=== PATIENT | male | born 1975 | race African-American/Black ===

== ENCOUNTER 2016-07-02 07:43 | Emergency (ER) | payer SELFPAY ==
[~2016-07-02] VITALS: Ht 177.8 cm; Wt 116.4 kg
[~2016-07-02 07:43] MED LIST: CEPHALEXIN500 M1 PO; DOXYCYCLINE 10100 MG PO; FLEXERIL 1010 MG/TAB PO; HCTZ 25MG TAB25 MG PO; LISINOPRIL10 MG PO; LISINOPRIL5 MG PO; LORTAB 5/500 501 TAB PO; MOTRIN 800800 MG/TAB PO; NAPROSYN500 MG PO; NO HOME MEDICATIONS; NORCO 325 MG-51 TAB PO; NORCO 325 MG-7.1 TAB PO; NORFLEX 10100 MG/TAB PO; PEN-V500 MG PO; PEN-VEE K500 MG PO; PENICILLIN250 MG PO; PERCOCET 325 MG1 TA2 PO; PHENERGAN 25 TA25 MG PO; PRINIVIL10 MG PO; ZESTRIL 10MG10 MG PO; ZITHROMAX Z PA250 MG PO; ZOFRAN 4MG T4 MG/TAB PO
[2016-07-02 07:52] VITALS: TEMP 98.5
[2016-07-02 08:29] LABS: BASO % 0.5 % (0.0-2.0); EOS # 0.2 (0.0-0.7); EOS % 2.8 % (0-4.0); GRAN # 5.4 (1.4-6.5); GRAN % 64.6 % (42.2-75.2); HEMATOCRIT 41.8 % (42.0-52.0); HEMOGLOBIN 13.6 g/dl (13.5-18.0); LYMPH # 2.3 (1.2-3.4); LYMPH % 27.5 % (20.0-51.0); MEAN CELL VOLUME 87 fl (80.0-100.0); MEAN CORPUSCULAR HEMOGLOBIN 29 pg (27.0-31.0); MEAN CORPUSCULAR HGB CONC 33 g/dl (33.0-37.0); MEAN PLATELET VOLUME 10.7 fl (7.4-10.4); MONO # 0.4 (0.1-0.6); MONO % 4.2 % (1.7-9.3); PLATELET COUNT 238 K/mm3 (130-400); RED BLOOD COUNT 4.78 M/mm3 (4.20-5.60); REDCELL DISTRIBUTION WIDTH-CV 14.5 % (11.5-14.5); WHITE BLOOD COUNT 8.3 K/mm3 (4.8-10.8)
[2016-07-02 08:35] LABS: PROTHROMBIN TIME 10.7 SECONDS (9.7-12.8)
[2016-07-02 08:36] LABS: ADJUSTED CALCIUM 9.1 mg/dL (8.4-10.2); ALBUMIN 4.4 gm/dL (3.5-5.0); BILIRUBIN,TOTAL 0.6 mg/dL (0.0-1.0); CALCIUM 9.4 mg/dL (8.4-10.2); CREATININE, serum 1.14 mg/dL (0.66-1.25); POTASSIUM 4.2 mmol/L (3.4-5.0); TOTAL PROTEIN 7.9 gm/dL (6.4-8.2)
[2016-07-02 08:37] LABS: PARTIAL THROMBOPLASTIN TIME 32.8 SECONDS (26.0-37.0)
[2016-07-02 09:03] VITALS: BP 176/101; PULSE 60
== END 2016-07-02 10:00 | disposition home or self-care (01) ==
LOC: COL.ER 07:43
PROVIDERS: Emergency Medicine
DX: K92.2 Gastrointestinal hemorrhage, unspecified (principal); I10 Essential (primary) hypertension; F17.210 Nicotine dependence, cigarettes, uncomplicated
CPT/HCPCS: J2765; J3010; J7050

== ENCOUNTER 2016-07-24 05:22 | Emergency (ER) | payer SELFPAY ==
[~2016-07-24] VITALS: Ht 177.8 cm; Wt 117.3 kg
[2016-07-24 05:25] VITALS: TEMP 97.8
[2016-07-24] MEDS ORDERED: PRINIVIL10 MG PO ×2 (05:28→05:47)
[2016-07-24] MEDS ORDERED: ULTRAM 50MG TAB50 MG PO (05:47)
[2016-07-24 05:51] LABS: BASO % 0.4 % (0.0-2.0); EOS # 0.3 (0.0-0.7); EOS % 2.5 % (0-4.0); GRAN % 59.2 % (42.2-75.2); HEMOGLOBIN 14.2 g/dl (13.5-18.0); LYMPH # 3.1 (1.2-3.4); LYMPH % 31.2 % (20.0-51.0); MEAN CELL VOLUME 87 fl (80.0-100.0); MEAN CORPUSCULAR HEMOGLOBIN 29 pg (27.0-31.0); MEAN CORPUSCULAR HGB CONC 33 g/dl (33.0-37.0); MEAN PLATELET VOLUME 11.5 fl (7.4-10.4); MONO # 0.7 (0.1-0.6); MONO % 6.5 % (1.7-9.3); PLATELET COUNT 232 K/mm3 (130-400); RED BLOOD COUNT 4.95 M/mm3 (4.20-5.60); REDCELL DISTRIBUTION WIDTH-CV 14.3 % (11.5-14.5); WHITE BLOOD COUNT 10.1 K/mm3 (4.8-10.8)
[2016-07-24 06:42] VITALS: BP 137/90; PULSE 63
== END 2016-07-24 06:34 | disposition home or self-care (01) ==
LOC: COL.ER 05:22
PROVIDERS: Emergency Medicine
DX: R51 Headache (principal); I10 Essential (primary) hypertension; T46.5X6A Underdosing of other antihypertensive drugs, initial encounter; F17.210 Nicotine dependence, cigarettes, uncomplicated
CPT/HCPCS: J1200; J1885; J2765; J7030

== ENCOUNTER 2016-08-31 22:47 | Emergency (ER) | payer SELFPAY ==
[~2016-08-31] VITALS: Ht 177.8 cm; Wt 122.7 kg
[~2016-08-31 22:47] MED LIST changes: +ULTRAM 50MG TAB50 MG PO
[2016-08-31 22:50] VITALS: TEMP 98
[2016-08-31 23:25] LABS: BASO % 0.3 % (0.0-2.0); EOS # 0.2 (0.0-0.7); EOS % 2.6 % (0-4.0); GRAN # 5.2 (1.4-6.5); GRAN % 55.9 % (42.2-75.2); HEMOGLOBIN 13.7 g/dl (13.5-18.0); LYMPH # 3.3 (1.2-3.4); LYMPH % 36.2 % (20.0-51.0); MEAN CELL VOLUME 86 fl (80.0-100.0); MEAN CORPUSCULAR HEMOGLOBIN 29 pg (27.0-31.0); MEAN CORPUSCULAR HGB CONC 33 g/dl (33.0-37.0); MEAN PLATELET VOLUME 11.1 fl (7.4-10.4); MONO # 0.4 (0.1-0.6); MONO % 4.8 % (1.7-9.3); PLATELET COUNT 211 K/mm3 (130-400); RED BLOOD COUNT 4.75 M/mm3 (4.20-5.60); REDCELL DISTRIBUTION WIDTH-CV 14.1 % (11.5-14.5); WHITE BLOOD COUNT 9.2 K/mm3 (4.8-10.8)
[2016-08-31 23:36] LABS: ADJUSTED CALCIUM 8.9 mg/dL (8.4-10.2); ALANINE AMINOTRANSFERASE 44 U/L (21-72); ALKALINE PHOSPHATASE 172 U/L (50-136); ANION GAP 13 mmol/L (7-16); BILIRUBIN,TOTAL 0.7 mg/dL (0.0-1.0); BLOOD UREA NITROGEN 18 mg/dL (9-20); CALCIUM 9.7 mg/dL (8.4-10.2); CARBON DIOXIDE 23 mmol/L (22-30); CHLORIDE 104 mmol/L (98-107); CREATININE, serum 1.17 mg/dL (0.66-1.25); GLUCOSE 91 mg/dL (74-106); LIPASE 810 U/L (23-300); POTASSIUM 3.9 mmol/L (3.4-5.0); SODIUM 140 mmol/L (137-145); TOTAL PROTEIN 8.1 gm/dL (6.4-8.2)
[2016-08-31 23:47] LABS: B-TYPE NATRIURETIC PEPTIDE 29 pg/mL (0-125)
[2016-08-31 23:51] LABS: TROPONIN-I < 0.012 ng/mL (0.000-0.034)
[2016-09-01 02:12] VITALS: BP 182/108; PULSE 57
== END 2016-09-01 02:15 | disposition home or self-care (01) ==
LOC: COL.ER 22:47
PROVIDERS: Emergency Medicine
DX: D17.1 Benign lipomatous neoplasm of skin and subcutaneous tissue of trunk (principal); D17.79 Benign lipomatous neoplasm of other sites; I10 Essential (primary) hypertension
CPT/HCPCS: J1170; Q9967

== ENCOUNTER 2016-11-16 20:33 | Emergency (ER) | payer SELFPAY ==
[~2016-11-16] VITALS: Ht 177.8 cm; Wt 120.5 kg
[2016-11-16 20:47] VITALS: BP 178/97; PULSE 70; TEMP 98.9
[2016-11-16] MEDS ORDERED: NORCO 325 MG-51 TAB PO (21:25)
[2016-11-16] MEDS ORDERED: PEN-VEE K500 MG PO (21:25)
== END 2016-11-16 21:41 | disposition home or self-care (01) ==
LOC: COL.ER 20:33
DX: K08.89 Other specified disorders of teeth and supporting structures (principal); F17.200 Nicotine dependence, unspecified, uncomplicated; K03.81 Cracked tooth; I10 Essential (primary) hypertension

== ENCOUNTER 2017-02-13 21:50 | Emergency (ER) | payer SELFPAY ==
[~2017-02-13] VITALS: Ht 177.8 cm; Wt 121.4 kg
[2017-02-13 21:58] VITALS: TEMP 98.2
[2017-02-13 22:44] LABS: BASO % 0.4 % (0.0-2.0); EOS # 0.2 (0.0-0.7); EOS % 1.6 % (0-4.0); GRAN # 6.4 (1.4-6.5); GRAN % 61.3 % (42.2-75.2); HEMATOCRIT 44.7 % (42.0-52.0); LYMPH # 3.2 (1.2-3.4); MEAN CELL VOLUME 85 fl (80.0-100.0); MEAN CORPUSCULAR HEMOGLOBIN 29 pg (27.0-31.0); MEAN CORPUSCULAR HGB CONC 34 g/dl (33.0-37.0); MEAN PLATELET VOLUME 11.4 fl (7.4-10.4); MONO # 0.7 (0.1-0.6); MONO % 6.5 % (1.7-9.3); PLATELET COUNT 277 K/mm3 (130-400); RED BLOOD COUNT 5.24 M/mm3 (4.20-5.60); WHITE BLOOD COUNT 10.5 K/mm3 (4.8-10.8)
[2017-02-13 22:54] LABS: ADJUSTED CALCIUM 9.1 mg/dL (8.4-10.2); ALBUMIN 5.5 gm/dL (3.5-5.0); BILIRUBIN,TOTAL 0.6 mg/dL (0.0-1.0); CALCIUM 10.3 mg/dL (8.4-10.2); CREATININE, serum 2.63 mg/dL (0.66-1.25); POTASSIUM 3.9 mmol/L (3.4-5.0); TOTAL PROTEIN 9.3 gm/dL (6.4-8.2)
[2017-02-13 23:05] LABS: HYALINE CAST >12 /lpf; PH 5 (5-8); SQUAMOUS EPITHELIAL 0-2 /hpf; URINE APPEARANCE Hazy; URINE BACTERIA None Seen /hpf; URINE BILIRUBIN Negative (NEGATIVE); URINE BLOOD Negative (NEGATIVE); URINE COLOR Yellow; URINE GLUCOSE Negative (NEGATIVE); URINE KETONE Trace (NEGATIVE); URINE RBC 0-2 /hpf
[2017-02-14] VITALS: BP 158/98; PULSE 71
== END 2017-02-14 | disposition home or self-care (01) ==
LOC: COL.ER 21:50
PROVIDERS: Family Medicine
DX: E86.0 Dehydration (principal); R00.0 Tachycardia, unspecified; R79.89 Other specified abnormal findings of blood chemistry; I10 Essential (primary) hypertension; F17.210 Nicotine dependence, cigarettes, uncomplicated
CPT/HCPCS: J2060; J2405; J7030

== ENCOUNTER 2017-02-23 21:48 | Emergency (ER) | payer SELFPAY ==
[~2017-02-23] VITALS: Ht 170.2 cm; Wt 115.5 kg
[2017-02-23 21:51] VITALS: TEMP 98.4
[2017-02-24] MEDS ORDERED: VOLTAREN 75 DR75 MG PO (02:32)
[2017-02-24] MEDS ORDERED: NORCO 325 MG-51 TAB PO (02:32)
[2017-02-24] MEDS ORDERED: FLEXERIL 1010 MG/TAB PO (02:32)
[2017-02-24 02:47] VITALS: BP 147/82; PULSE 58
== END 2017-02-24 02:49 | disposition home or self-care (01) ==
LOC: COL.ER 21:48
DX: S16.1XXA Strain of muscle, fascia and tendon at neck level, initial encounter (principal); V43.62XA Car passenger injured in collision with other type car in traffic accident, initial encounter; Y92.410 Unspecified street and highway as the place of occurrence of the external cause; R20.0 Anesthesia of skin; R29.898 Other symptoms and signs involving the musculoskeletal system; M99.51 Intervertebral disc stenosis of neural canal of cervical region
CPT/HCPCS: J3010

== ENCOUNTER 2017-04-27 22:26 | Emergency (ER) | payer SELFPAY ==
[~2017-04-27] VITALS: Ht 177.8 cm; Wt 118.6 kg
[~2017-04-27 22:26] MED LIST changes: +VOLTAREN 75 DR75 MG PO
[2017-04-27 22:28] VITALS: TEMP 98.8
[2017-04-27 23:09] LABS: COLLECTION METHOD CLEAN CATCH
[2017-04-27 23:13] LABS: BASO % 0.4 % (0.0-2.0); EOS # 0.2 (0.0-0.7); EOS % 2.7 % (0-4.0); GRAN # 5.1 (1.4-6.5); GRAN % 62.6 % (42.2-75.2); HEMOGLOBIN 13.3 g/dl (13.5-18.0); LYMPH # 2.5 (1.2-3.4); LYMPH % 30.5 % (20.0-51.0); MEAN CELL VOLUME 87 fl (80.0-100.0); MEAN CORPUSCULAR HEMOGLOBIN 29 pg (27.0-31.0); MEAN CORPUSCULAR HGB CONC 33 g/dl (33.0-37.0); MEAN PLATELET VOLUME 11.2 fl (7.4-10.4); MONO # 0.3 (0.1-0.6); MONO % 3.6 % (1.7-9.3); PLATELET COUNT 220 K/mm3 (130-400); WHITE BLOOD COUNT 8.1 K/mm3 (4.8-10.8)
[2017-04-27 23:16] LABS: PH 5 (5-8); SQUAMOUS EPITHELIAL None Seen /hpf; URINE APPEARANCE Clear; URINE BACTERIA None Seen /hpf; URINE BILIRUBIN Negative (NEGATIVE); URINE BLOOD Negative (NEGATIVE); URINE COLOR Yellow; URINE GLUCOSE Negative (NEGATIVE); URINE KETONE Negative (NEGATIVE); URINE LEUKOCYTE ESTERASE Negative (NEGATIVE); URINE PROTEIN(semi-quant) Negative (NEGATIVE); URINE RBC 0-2 /hpf; URINE UROBILINOGEN Negative (NEGATIVE); URINE WBC 0-2 /hpf
[2017-04-27 23:22] LABS: ADJUSTED CALCIUM 9.1 mg/dL (8.4-10.2); ALBUMIN 4.7 gm/dL (3.5-5.0); BILIRUBIN,TOTAL 0.4 mg/dL (0.0-1.0); CALCIUM 9.7 mg/dL (8.4-10.2); CREATININE, serum 1.08 mg/dL (0.66-1.25); POTASSIUM 3.8 mmol/L (3.4-5.0); TOTAL PROTEIN 7.6 gm/dL (6.4-8.2)
[2017-04-28] MEDS ORDERED: FLAGYL500 MG PO (00:30)
[2017-04-28] MEDS ORDERED: LEVAQUIN 750MG750 M1 PO (00:30)
[2017-04-28 00:57] VITALS: BP 178/115; PULSE 63
== END 2017-04-28 01:08 | disposition home or self-care (01) ==
LOC: COL.ER 22:26
PROVIDERS: Emergency Medicine
DX: K62.89 Other specified diseases of anus and rectum (principal); K92.1 Melena; I10 Essential (primary) hypertension; F17.210 Nicotine dependence, cigarettes, uncomplicated
CPT/HCPCS: J2270; J7030; Q9967

== ENCOUNTER 2017-06-29 13:42 | Inpatient (IN) | payer BC ==
[~2017-06-29] VITALS: Ht 177.8 cm; Wt 113.8 kg
[~2017-06-29 13:42] MED LIST changes: +FLAGYL500 MG PO; +LEVAQUIN 750MG750 M1 PO
[2017-06-29 15:47] LABS: BASO % 0.5 % (0.0-2.0); EOS # 0.3 (0.0-0.7); EOS % 3.1 % (0-4.0); GRAN % 59.5 % (42.2-75.2); HEMATOCRIT 43.3 % (42.0-52.0); HEMOGLOBIN 14.2 g/dl (13.5-18.0); LYMPH # 2.7 (1.2-3.4); LYMPH % 32.4 % (20.0-51.0); MEAN CELL VOLUME 89 fl (80.0-100.0); MEAN CORPUSCULAR HEMOGLOBIN 29 pg (27.0-31.0); MEAN CORPUSCULAR HGB CONC 33 g/dl (33.0-37.0); MEAN PLATELET VOLUME 11.1 fl (7.4-10.4); MONO # 0.4 (0.1-0.6); MONO % 4.3 % (1.7-9.3); PLATELET COUNT 225 K/mm3 (130-400); RED BLOOD COUNT 4.89 M/mm3 (4.20-5.60); REDCELL DISTRIBUTION WIDTH-CV 14.2 % (11.5-14.5)
[2017-06-29 16:04] LABS: ALBUMIN 4.8 gm/dL (3.5-5.0); BILIRUBIN,TOTAL 0.3 mg/dL (0.0-1.0); CALCIUM 9.6 mg/dL (8.4-10.2); CREATININE, serum 1.14 mg/dL (0.66-1.25); POTASSIUM 4.6 mmol/L (3.4-5.0); TOTAL PROTEIN 7.8 gm/dL (6.4-8.2)
[2017-06-29 20:00] VITALS: BP 140/105; PULSE 54; TEMP 98
[2017-06-29 21:25] VITALS: BP 140/105; PULSE 54; TEMP 98
[2017-06-30] VITALS: BP 155/95; PULSE 60; TEMP 97.8
[2017-06-30 03:33] VITALS: BP 146/100; PULSE 57; TEMP 97.9
[2017-06-30 05:42] LABS: BASO % 0.4 % (0.0-2.0); EOS # 0.3 (0.0-0.7); EOS % 3.3 % (0-4.0); GRAN # 4.4 (1.4-6.5); GRAN % 54.5 % (42.2-75.2); HEMATOCRIT 42.2 % (42.0-52.0); HEMOGLOBIN 13.8 g/dl (13.5-18.0); MEAN CELL VOLUME 88 fl (80.0-100.0); MEAN CORPUSCULAR HEMOGLOBIN 29 pg (27.0-31.0); MEAN CORPUSCULAR HGB CONC 33 g/dl (33.0-37.0); MEAN PLATELET VOLUME 10.7 fl (7.4-10.4); MONO # 0.4 (0.1-0.6); MONO % 4.4 % (1.7-9.3); PLATELET COUNT 231 K/mm3 (130-400); REDCELL DISTRIBUTION WIDTH-CV 14.3 % (11.5-14.5)
[2017-06-30 06:18] LABS: CALCIUM 9.6 mg/dL (8.4-10.2); CREATININE, serum 1.06 mg/dL (0.66-1.25)
[2017-06-30 08:00] VITALS: BP 164/107; PULSE 76; TEMP 97.7
[2017-06-30 12:00] VITALS: BP 119/75; PULSE 53; TEMP 97.7
[2017-06-30 15:30] VITALS: BP 154/98; PULSE 62; TEMP 98.4
[2017-06-30 19:16] VITALS: BP 152/93; PULSE 64; TEMP 98.7
[2017-07-01] VITALS (8 sets, daily range): BP systolic 138–183; BP diastolic 78–100; PULSE 56–82; TEMP 97.5–98.6
[2017-07-02 00:04] VITALS: BP 155/90; PULSE 63; TEMP 98.5
[2017-07-02 04:24] VITALS: BP 121/59; PULSE 91; TEMP 98.3
[2017-07-02 04:40] VITALS: BP 150/102; PULSE 66; TEMP 98
[2017-07-02 08:05] VITALS: BP 163/92; PULSE 65; TEMP 98
[2017-07-02 09:58] VITALS: BP 133/87; PULSE 74
[2017-07-02] MEDS ORDERED: NORVASC 5MG5 MG/TAB PO (10:03)
[2017-07-02] MEDS ORDERED: ZESTRIL 20MG TA20 MG PO (10:03)
[2017-07-02] MEDS ORDERED: NICODERM C21 MG/PATC TD (10:05)
== END 2017-07-02 12:06 | disposition home or self-care (01) | DRG 305 ==
LOC: COL.ER 13:42 → ICU 18:20 → MEDICAL 18:20
PROVIDERS: Family Medicine; Nurse Practitioner Family
DX: I16.0 Hypertensive urgency (principal); I10 Essential (primary) hypertension; F17.210 Nicotine dependence, cigarettes, uncomplicated
CPT/HCPCS: 99222-AI; 99231-AI; 99239; J0360; J0595; J1170; J2550; J7050

== ENCOUNTER 2017-09-14 21:29 | Emergency (ER) | payer BC ==
[~2017-09-14] VITALS: Ht 154.9 cm; Wt 119.9 kg
[~2017-09-14 21:29] MED LIST changes: +NICODERM C21 MG/PATC TD; +NORVASC 5MG5 MG/TAB PO; +ZESTRIL 20MG TA20 MG PO
[2017-09-14 21:32] VITALS: TEMP 98.8
[2017-09-14] MEDS ORDERED: MEDROL 4MG DOSPA4 MG PO (23:08)
[2017-09-14 23:32] VITALS: BP 164/94; PULSE 89
== END 2017-09-14 23:32 | disposition home or self-care (01) ==
LOC: COL.ER 21:29
DX: M54.31 Sciatica, right side (principal)

== ENCOUNTER → 2017-10-01 | Outpatient (CLI) | payer BC ==
[~2017-10-01] MED LIST changes: +MEDROL 4MG DOSPA4 MG PO
== END ==
LOC: COL.RAD 07:02
DX: D17.39 Benign lipomatous neoplasm of skin and subcutaneous tissue of other sites (principal)

== ENCOUNTER 2018-04-07 06:59 | Emergency (ER) | payer BC ==
[~2018-04-07] VITALS: Ht 175.3 cm; Wt 122.7 kg
[2018-04-07 07:05] VITALS: PULSE 74; TEMP 98.5
[2018-04-07] MEDS ORDERED: PRINIVIL40 MG PO (07:07)
[2018-04-07] MEDS ORDERED: AMOXICILLIN 50500 MG PO (07:28)
[2018-04-07 07:36] VITALS: BP 158/102
== END 2018-04-07 07:37 | disposition home or self-care (01) ==
LOC: COL.ER 06:59
DX: I10 Essential (primary) hypertension (principal); J02.9 Acute pharyngitis, unspecified
CPT/HCPCS: J8540

== ENCOUNTER 2018-08-02 17:50 | Emergency (ER) | payer OTHER ==
[~2018-08-02] VITALS: Ht 177.8 cm; Wt 113.6 kg
[~2018-08-02 17:50] MED LIST changes: +AMOXICILLIN 50500 MG PO; +PRINIVIL40 MG PO
[2018-08-02 18:00] VITALS: BP 182/117; TEMP 98.6
[2018-08-02] MEDS ORDERED: ZITHROMAX Z PA250 MG PO (20:20)
[2018-08-02] MEDS ORDERED: NORCO 325 MG-51 TAB PO (20:20)
[2018-08-02 20:35] VITALS: PULSE 62
== END 2018-08-02 20:35 | disposition home or self-care (01) ==
LOC: COL.ER 17:50
DX: S20.212A Contusion of left front wall of thorax, initial encounter (principal); I10 Essential (primary) hypertension; F17.210 Nicotine dependence, cigarettes, uncomplicated; X50.0XXA Overexertion from strenuous movement or load, initial encounter; Y92.59 Other trade areas as the place of occurrence of the external cause

== ENCOUNTER 2018-08-18 06:48 | Emergency (ER) | payer SELFPAY ==
[~2018-08-18] VITALS: Ht 177.8 cm; Wt 116.8 kg
[2018-08-18 06:55] VITALS: TEMP 98.6
[2018-08-18 07:15] LABS: BASO % 0.3 % (0.0-2.0); EOS # 0.2 (0.0-0.7); EOS % 2.7 % (0-4.0); GRAN # 4.6 (1.4-6.5); GRAN % 60.9 % (42.2-75.2); HEMATOCRIT 42.8 % (42.0-52.0); HEMOGLOBIN 13.9 g/dl (13.5-18.0); LYMPH # 2.3 (1.2-3.4); LYMPH % 31.1 % (20.0-51.0); MEAN CELL VOLUME 88 fl (80.0-100.0); MEAN CORPUSCULAR HEMOGLOBIN 28 pg (27.0-31.0); MEAN CORPUSCULAR HGB CONC 33 g/dl (33.0-37.0); MEAN PLATELET VOLUME 10.9 fl (7.4-10.4); MONO # 0.3 (0.1-0.6); MONO % 4.6 % (1.7-9.3); PLATELET COUNT 199 K/mm3 (130-400); RED BLOOD COUNT 4.89 M/mm3 (4.20-5.60); REDCELL DISTRIBUTION WIDTH-CV 14.3 % (11.5-14.5)
[2018-08-18 07:35] LABS: ALBUMIN 4.3 gm/dL (3.5-5.0); BILIRUBIN,TOTAL 0.2 mg/dL (0.0-1.0); C-REACTIVE PROTEIN 0.5 mg/dL (0.0-0.9); CALCIUM 9.1 mg/dL (8.4-10.2); CREATININE, serum 1.29 mg/dL (0.66-1.25); POTASSIUM 4.1 mmol/L (3.4-5.0); TOTAL PROTEIN 7.5 gm/dL (6.4-8.2)
[2018-08-18] MEDS ORDERED: ZESTRIL40 MG PO (09:39)
[2018-08-18] MEDS ORDERED: LOPRESSOR 225 MG/TAB PO (10:01)
[2018-08-18] MEDS ORDERED: HYGROTON 2525 MG/TAB PO (10:01)
[2018-08-18 10:06] VITALS: BP 151/95; PULSE 74
== END 2018-08-18 10:28 | disposition home or self-care (01) ==
LOC: COL.ER 06:48
PROVIDERS: Emergency Medicine
DX: R51 Headache (principal); I10 Essential (primary) hypertension; F17.210 Nicotine dependence, cigarettes, uncomplicated
CPT/HCPCS: J1200; J2550; J3010; J7040

== ENCOUNTER 2019-02-02 09:36 | Emergency (ER) | payer SELFPAY ==
[~2019-02-02] VITALS: Ht 177.8 cm; Wt 116.4 kg
[~2019-02-02 09:36] MED LIST changes: +HYGROTON 2525 MG/TAB PO; +LOPRESSOR 225 MG/TAB PO; +ZESTRIL40 MG PO
[2019-02-02] MEDS ORDERED: PRINIVIL40 MG PO (11:11)
[2019-02-02 11:31] VITALS: BP 158/98; PULSE 64; TEMP 98.2
== END 2019-02-02 11:37 | disposition home or self-care (01) ==
LOC: COL.ER 09:36
DX: G43.909 Migraine, unspecified, not intractable, without status migrainosus (principal); I10 Essential (primary) hypertension; F17.210 Nicotine dependence, cigarettes, uncomplicated; Z91.14 Patient's other noncompliance with medication regimen
CPT/HCPCS: J1200; J2765; J3010; J7030

== ENCOUNTER 2019-03-23 20:14 | Emergency (ER) | payer SELFPAY ==
[~2019-03-23] VITALS: Ht 177.8 cm; Wt 116.4 kg
[2019-03-23 20:16] VITALS: TEMP 98.6
[2019-03-23 21:42] VITALS: BP 162/126; PULSE 81
[2019-03-23] MEDS ORDERED: NORVASC 5MG5 MG/TAB PO (21:44)
[2019-03-23] MEDS ORDERED: PRINIVIL20 MG PO (21:44)
[2019-03-23] MEDS ORDERED: CEPHALEXIN500 M1 PO (21:52)
== END 2019-03-23 22:00 | disposition home or self-care (01) ==
LOC: COL.ER 20:14
DX: S61.431A Puncture wound without foreign body of right hand, initial encounter (principal); I10 Essential (primary) hypertension; F17.210 Nicotine dependence, cigarettes, uncomplicated; W26.8XXA Contact with other sharp object(s), not elsewhere classified, initial encounter; Y92.59 Other trade areas as the place of occurrence of the external cause

== ENCOUNTER 2019-05-02 22:45 | Emergency (ER) | payer SELFPAY ==
[~2019-05-02] VITALS: Ht 177.8 cm; Wt 116.4 kg
[~2019-05-02 22:45] MED LIST changes: +PRINIVIL20 MG PO
[2019-05-02 22:50] VITALS: TEMP 97.8
[2019-05-02 23:32] LABS: BASO % 0.3 % (0.0-2.0); EOS # 0.2 (0.0-0.7); EOS % 2.8 % (0-4.0); GRAN # 5.4 (1.4-6.5); GRAN % 62.3 % (42.2-75.2); HEMATOCRIT 40.1 % (42.0-52.0); LYMPH # 2.5 (1.2-3.4); LYMPH % 29.3 % (20.0-51.0); MEAN CELL VOLUME 89 fl (80.0-100.0); MEAN CORPUSCULAR HEMOGLOBIN 29 pg (27.0-31.0); MEAN CORPUSCULAR HGB CONC 32 g/dl (33.0-37.0); MEAN PLATELET VOLUME 11.3 fl (7.4-10.4); MONO # 0.4 (0.1-0.6); MONO % 4.8 % (1.7-9.3); PLATELET COUNT 206 K/mm3 (130-400); RED BLOOD COUNT 4.53 M/mm3 (4.20-5.60); REDCELL DISTRIBUTION WIDTH-CV 14.4 % (11.5-14.5)
[2019-05-02 23:41] LABS: ALANINE AMINOTRANSFERASE 20 U/L (21-72); ALBUMIN 4.4 gm/dL (3.5-5.0); ALKALINE PHOSPHATASE 108 U/L (50-136); ANION GAP 9 mmol/L (7-16); AST,SGOT 20 U/L (15-37); BILIRUBIN,TOTAL 0.4 mg/dL (0.0-1.0); BLOOD UREA NITROGEN 17 mg/dL (9-20); CARBON DIOXIDE 25 mmol/L (22-30); CHLORIDE 105 mmol/L (98-107); CREATININE, serum 1.25 (0.66-1.25); GLUCOSE 127 mg/dL (74-106); POTASSIUM 4.1 mmol/L (3.4-5.0); SODIUM 139 mmol/L (137-145); TOTAL PROTEIN 7.4 gm/dL (6.4-8.2)
[2019-05-02 23:53] LABS: TROPONIN-I < 0.012 ng/mL (0.000-0.035)
[2019-05-03 03:08] VITALS: BP 174/104; PULSE 58
== END 2019-05-03 03:08 | disposition home or self-care (01) ==
LOC: COL.ER 22:45
PROVIDERS: Emergency Medicine
DX: I10 Essential (primary) hypertension (principal); R51 Headache; F17.210 Nicotine dependence, cigarettes, uncomplicated
CPT/HCPCS: J1200; J2765; J3010; J7040; Q9967

== ENCOUNTER 2019-05-05 08:36 | Emergency (ER) | payer SELFPAY ==
[~2019-05-05] VITALS: Ht 177.8 cm; Wt 116.4 kg
[2019-05-05 08:40] VITALS: TEMP 97.7
[2019-05-05 10:05] LABS: BASO % 0.3 % (0.0-2.0); EOS # 0.2 (0.0-0.7); GRAN # 5.1 (1.4-6.5); GRAN % 66.2 % (42.2-75.2); HEMATOCRIT 42.9 % (42.0-52.0); HEMOGLOBIN 14.1 g/dl (13.5-18.0); LYMPH % 26.4 % (20.0-51.0); MEAN CELL VOLUME 87 fl (80.0-100.0); MEAN CORPUSCULAR HEMOGLOBIN 29 pg (27.0-31.0); MEAN CORPUSCULAR HGB CONC 33 g/dl (33.0-37.0); MONO # 0.4 (0.1-0.6); MONO % 4.8 % (1.7-9.3); PLATELET COUNT 236 K/mm3 (130-400); RED BLOOD COUNT 4.93 M/mm3 (4.20-5.60); REDCELL DISTRIBUTION WIDTH-CV 14.1 % (11.5-14.5)
[2019-05-05 10:16] LABS: ALANINE AMINOTRANSFERASE 24 U/L (21-72); ALBUMIN 4.7 gm/dL (3.5-5.0); ALKALINE PHOSPHATASE 113 U/L (50-136); ANION GAP 9 mmol/L (7-16); AST,SGOT 22 U/L (15-37); BILIRUBIN,TOTAL 0.3 mg/dL (0.0-1.0); BLOOD UREA NITROGEN 19 mg/dL (9-20); CALCIUM 9.1 mg/dL (8.4-10.2); CARBON DIOXIDE 24 mmol/L (22-30); CHLORIDE 105 mmol/L (98-107); CREATININE, serum 1.15 (0.66-1.25); GLUCOSE 108 mg/dL (74-106); POTASSIUM 4.2 mmol/L (3.4-5.0); SODIUM 139 mmol/L (137-145)
[2019-05-05 10:19] LABS: C-REACTIVE PROTEIN < 0.5 mg/dL (0.0-0.9)
[2019-05-05 10:25] LABS: ERYTHROCYTE SEDIMENTATION RATE 10 mm/hr (0-15)
[2019-05-05] MEDS ORDERED: PRINIVIL20 MG PO (11:18)
[2019-05-05 12:11] VITALS: BP 138/95; PULSE 54
== END 2019-05-05 12:11 | disposition home or self-care (01) ==
LOC: COL.ER 08:36
PROVIDERS: Nurse Practitioner
DX: G43.909 Migraine, unspecified, not intractable, without status migrainosus (principal); I10 Essential (primary) hypertension; F17.210 Nicotine dependence, cigarettes, uncomplicated
CPT/HCPCS: J1170; J1200; J1885; J2550; J2765; J7030

== ENCOUNTER 2019-09-05 09:26 | Emergency (ER) | payer SELFPAY ==
[~2019-09-05] VITALS: Ht 177.8 cm; Wt 114.5 kg
[2019-09-05 10:08] LABS: BASO % 0.2 % (0.0-2.0); EOS # 0.1 (0.0-0.7); EOS % 1.7 % (0-4.0); GRAN # 5.1 (1.4-6.5); GRAN % 63.1 % (42.2-75.2); HEMOGLOBIN 13.3 g/dl (13.5-18.0); LYMPH # 2.4 (1.2-3.4); MEAN CELL VOLUME 86 fl (80.0-100.0); MEAN CORPUSCULAR HEMOGLOBIN 29 pg (27.0-31.0); MEAN CORPUSCULAR HGB CONC 33 g/dl (33.0-37.0); MEAN PLATELET VOLUME 11.1 fl (7.4-10.4); MONO # 0.5 (0.1-0.6); MONO % 5.8 % (1.7-9.3); PLATELET COUNT 219 K/mm3 (130-400); RED BLOOD COUNT 4.63 M/mm3 (4.20-5.60); REDCELL DISTRIBUTION WIDTH-CV 14.1 % (11.5-14.5)
[2019-09-05 10:09] LABS: COLLECTION METHOD CLEAN CATCH
[2019-09-05 10:21] LABS: PH 5 (5-8); SQUAMOUS EPITHELIAL None Seen /hpf; URINE APPEARANCE Clear; URINE BACTERIA None Seen /hpf; URINE BILIRUBIN Negative (NEGATIVE); URINE BLOOD Negative (NEGATIVE); URINE COLOR Yellow; URINE GLUCOSE Negative (NEGATIVE); URINE KETONE Negative (NEGATIVE); URINE LEUKOCYTE ESTERASE Negative (NEGATIVE); URINE NITRATE Negative (NEGATIVE); URINE PROTEIN(semi-quant) Negative (NEGATIVE); URINE RBC 0-2 /hpf; URINE UROBILINOGEN Negative (NEGATIVE)
[2019-09-05 10:22] LABS: ALBUMIN 4.5 gm/dL (3.5-5.0); BILIRUBIN,TOTAL 0.4 mg/dL (0.0-1.0); C-REACTIVE PROTEIN 0.6 mg/dL (0.0-0.9); CALCIUM 8.9 mg/dL (8.4-10.2); CREATININE, serum 1.47 (0.66-1.25); POTASSIUM 4.1 mmol/L (3.4-5.0); TOTAL PROTEIN 7.7 gm/dL (6.4-8.2)
[2019-09-05 10:31] LABS: MUCOUS Present /lpf
[2019-09-05] MEDS ORDERED: PROTONIX 40MG T40 MG PO (11:02)
[2019-09-05] MEDS ORDERED: BENTYL 10MG10 MG/CAP PO ×2 (11:08)
[2019-09-05] MEDS ORDERED: ZOFRAN ODT8 MG PO (11:08)
[2019-09-05 11:25] VITALS: BP 156/96; PULSE 54; TEMP 97.9
[2019-09-07] MEDS ORDERED: NORVASC 5MG5 MG/TAB PO (09:27)
[2019-09-07] MEDS ORDERED: PRINIVIL40 MG PO (09:28)
[2019-09-07] MEDS ORDERED: PROTONIX 40MG T40 MG PO (09:29)
== END 2019-09-05 11:25 | disposition home or self-care (01) ==
LOC: COL.ER 09:26
PROVIDERS: Emergency Medicine
DX: R10.84 Generalized abdominal pain (principal); K92.1 Melena; R74.8 Abnormal levels of other serum enzymes; I10 Essential (primary) hypertension; F17.210 Nicotine dependence, cigarettes, uncomplicated
CPT/HCPCS: C9113; J2270; J2405; J7030; Q9967

== ENCOUNTER 2019-10-31 11:06 | Emergency (ER) | payer SELFPAY ==
[~2019-10-31] VITALS: Ht 177.8 cm; Wt 120.5 kg
[~2019-10-31 11:06] MED LIST changes: +BENTYL 10MG10 MG/CAP PO; +PROTONIX 40MG T40 MG PO; +ZOFRAN ODT8 MG PO
[2019-10-31 11:09] VITALS: TEMP 98.3
[2019-10-31] MEDS ORDERED: PRINIVIL40 MG PO (11:43)
[2019-10-31] MEDS ORDERED: NORVASC 5MG5 MG/TAB PO (11:43)
[2019-10-31 11:52] VITALS: BP 176/109; PULSE 76
== END 2019-10-31 11:53 | disposition home or self-care (01) ==
LOC: COL.ER 11:06
DX: I10 Essential (primary) hypertension (principal); R51 Headache; F17.210 Nicotine dependence, cigarettes, uncomplicated; Z88.5 Allergy status to narcotic agent; Z91.14 Patient's other noncompliance with medication regimen; Z76.0 Encounter for issue of repeat prescription

== ENCOUNTER 2020-08-17 18:11 | Emergency (ER) | payer SELFPAY ==
[~2020-08-17] VITALS: Ht 177.8 cm; Wt 121.4 kg
[2020-08-17 18:23] VITALS: TEMP 98.8
[2020-08-17] MEDS ORDERED: CLEOCIN HCL300 MG PO (18:42)
[2020-08-17 19:07] VITALS: BP 218/140; PULSE 110
== END 2020-08-17 19:10 | disposition home or self-care (01) ==
LOC: COL.ER 18:11
DX: K08.89 Other specified disorders of teeth and supporting structures (principal); I10 Essential (primary) hypertension; F17.210 Nicotine dependence, cigarettes, uncomplicated; Z88.6 Allergy status to analgesic agent

== ENCOUNTER 2024-01-26 07:25 | Emergency (ER) | payer OTHER ==
[~2024-01-26] VITALS: Ht 177.8 cm; Wt 125.5 kg
[~2024-01-26 07:25] MED LIST changes: +CLEOCIN HCL300 MG PO
[2024-01-26 07:33] VITALS: TEMP 98
[2024-01-26] MEDS ORDERED: NS 1,000 ML IV ONE (08:00)
[2024-01-26 08:12] LABS: COLLECTION METHOD CLEAN CATCH
[2024-01-26 08:22] LABS: BASO % 0.5 % (0.0-2.0); EOS # 0.2 K/mm3 (0.0-0.7); EOS % 2.6 % (0.0-4.0); GRAN # 5.3 K/mm3 (1.4-6.5); GRAN % 65.7 % (42.2-75.2); HEMATOCRIT 42.8 % (42.0-52.0); LYMPH # 2.1 K/mm3 (1.2-3.4); LYMPH % 26.3 % (20.0-51.0); MEAN CELL VOLUME 86 fl (80.0-100.0); MEAN CORPUSCULAR HEMOGLOBIN 28 pg (27-31); MEAN CORPUSCULAR HGB CONC 33 g/dl (33.0-37.0); MEAN PLATELET VOLUME 11.1 fl (7.4-10.4); MONO # 0.4 K/mm3 (0.1-0.6); MONO % 4.7 % (1.7-9.3); PLATELET COUNT 236 K/mm3 (130-400); REDCELL DISTRIBUTION WIDTH-CV 14.8 % (11.5-14.5)
[2024-01-26 08:24] LABS: URINE APPEARANCE CLEAR (CLEAR/HAZY); URINE BLOOD NEGATIVE (NEGATIVE); URINE COLOR YELLOW (YELLOW); URINE GLUCOSE NEGATIVE (NEGATIVE); URINE KETONE TRACE (NEGATIVE); URINE NITRATE NEGATIVE (NEGATIVE); URINE PROTEIN(semi-quant) 1+ (NEGATIVE); URINE UROBILINOGEN 0.2 E.U/dL (0.2-1.0)
[2024-01-26 08:29] LABS: ACETONE,SERUM NEGATIVE
[2024-01-26] MEDS ORDERED: Ketorolac 15 MG/ML VIAL IV ONE (08:30)
[2024-01-26 08:41] LABS: ALANINE AMINOTRANSFERASE 36 U/L (0-55); ALBUMIN 4.3 g/dL (3.5-5.0); ALKALINE PHOSPHATASE 163 U/L (40-150); ANION GAP 11 mmol/L (7-16); AST,SGOT 22 U/L (5-34); BILIRUBIN,TOTAL 0.3 mg/dL (0.2-1.2); BLOOD UREA NITROGEN 20 mg/dL (9-21); C-REACTIVE PROTEIN 0.38 mg/dL (0.00-0.50); CALCIUM 9.3 mg/dL (8.4-10.2); CHLORIDE 106 mEq/L (98-107); CREATININE, serum 1.57 mg/dL (0.72-1.25); GLUCOSE 106 mg/dL (70-99); LIPASE 125 U/L (8-78); POTASSIUM 4.1 mEq/L (3.5-4.5); SODIUM 138 mEq/L (136-145); TOTAL PROTEIN 7.9 g/dl (6.2-8.1)
[2024-01-26] MEDS ORDERED: NAPROSYN500 MG PO (09:59)
[2024-01-26] MEDS ORDERED: FLEXERIL 1010 MG/TAB PO (09:59)
[2024-01-26] MEDS ORDERED: Cyclobenzaprine 10 MG TAB PO ONE (10:00)
[2024-01-26 10:22] VITALS: BP 200/100; PULSE 58
== END 2024-01-26 10:25 | disposition home or self-care (01) ==
LOC: COL.ER 07:25
PROVIDERS: Emergency Medicine
DX: M54.50 Low back pain, unspecified (principal); F17.210 Nicotine dependence, cigarettes, uncomplicated
CPT/HCPCS: J1885; J7030